=== PATIENT | female | born 1945 | race African-American/Black ===

== ENCOUNTER 2016-08-30 15:22 | Emergency (ER) | payer BC ==
[2016-08-30 15:40] VITALS: BMI 28.8
[2016-08-30] MEDS ORDERED: LEVOFLOXACIN 500 MG TABLET (FP) PO ONE (15:48)
--- NOTE | 2016-08-30 15:55 | PDOC ---
History of Present Illness - General History Source: Patient Exam Limitations: No Limitations <Jeison Nash - Last Filed: 08/30/16 15:57> - General History Source: Patient, Old Records Exam Limitations: No Limitations - History of Present Illness Initial Comments: 08/30/16 15:59 The patient is a 63-year-old woman with a significant past medical history of recurrent urinary tract infections (E.Coli and Klebsiella), mild intermittent asthma, hypertension and hypercholesterolemia who presents to the emergency department via walk in for further evaluation of dysuria for the past 2 days. She states that she started to experience burning sensations in her bladder and performed a home dipstick urinalysis which showed questionable leukocytes and negative nitrates. She states that initially her urine was not cloudy but today it had a cloudy appearance. She also started to experience right sided lower back pain, which prompt her to present to the emergency department. She reports that she has a history of UTIs and her last episode was approximately 2 and a half years ago. She was evaluated by an Infectious Disease Specialist at [facility] who advised her at the time to treat her with Keflex for 1 month. She denies fever, chills, diaphoresis, generalized weakness. She denies chest pain, shortness of breath, cough She denies abdominal pain, nausea, vomiting, diarrhea, hematuria, urinary frequency and urgency, flank pain, vaginal discharge/vaginal bleeding Allergies: Sulfa. Past Surgical History: None reported. Social History: No tobacco, EtOH and recreational drug use. Primary Care Physician: N/A <Marivel Luther - Last Filed: 08/31/16 07:54> - General Chief Complaint: Urinary Problem Stated Complaint: URINARY PROBLEM Time Seen by Provider: 08/30/16 15:29 Past History - Past Medical History Asthma: Yes HTN: Yes Other medical history: urinary track infections - Psycho/Social/Smoking Cessation Hx Anxiety: No Suicidal Ideation: No Smoking History: Never smoked Have you smoked in the past 12 months: No Information on smoking cessation initiated: No Hx Alcohol Use: No Drug/Substance Use Hx: No Substance Use Type: None <Jeison Nash - Last Filed: 08/30/16 15:57> <Marivel Luther - Last Filed: 08/31/16 07:54> - Past Medical History Allergies/Adverse Reactions: Allergies Allergy/AdvReac Type Severity Reaction Status Date / Time No Known Allergies Allergy Verified 08/30/16 15:38 Home Medications: Ambulatory Orders Levofloxacin [Levaquin -] 500 mg PO DAILY #10 tablet 10/15/13 Phenazopyridine HCl 200 mg PO TID #9 tablet 10/15/13 Levofloxacin [Levaquin -] 500 mg PO DAILY #7 tablet 08/30/16 Review of Systems - Review of Systems Able to Perform ROS?: Yes Comments:: 08/30/16 15:59 GENERAL/CONSTITUTIONAL: No fever or chills. No weakness. HEAD, EYES, EARS, NOSE AND THROAT: No change in vision. No ear pain or discharge. No sore throat. CARDIOVASCULAR: No chest pain or shortness of breath. RESPIRATORY: No cough, wheezing, or hemoptysis. GASTROINTESTINAL: No nausea, vomiting, diarrhea or constipation. GENITOURINARY: Yes: Dysuria. No: frequency, or change in urination. MUSCULOSKELETAL: Yes: Right Lower Back Pain. No joint or muscle swelling or pain. No neck pain. SKIN: No rash NEUROLOGIC: No headache, vertigo, loss of consciousness, or change in strength/ sensation. ENDOCRINE: No increased thirst. No abnormal weight change. HEMATOLOGIC/LYMPHATIC: No anemia, easy bleeding, or history of blood clots. ALLERGIC/IMMUNOLOGIC: No hives or skin allergy. <Marivel Luther - Last Filed: 08/31/16 07:54> *Physical Exam - Vital Signs Last Vital Signs Temp Pulse Resp BP Pulse Ox 70 18 143/90 97 08/30/16 15:25 08/30/16 15:25 08/30/16 15:25 08/30/16 15:25 <Jeison Nash - Last Filed: 08/30/16 15:57> - Vital Signs Last Vital Signs Temp Pulse Resp BP Pulse Ox 70 18 143/90 97 08/30/16 15:25 08/30/16 15:25 08/30/16 15:25 08/30/16 15:25 - Physical Exam Comments: 08/30/16 16:00 GENERAL: Awake, alert, and fully oriented, in no acute distress HEAD: No signs of trauma EYES: PERRLA, EOMI, sclera anicteric, conjunctiva clear ENT: Auricles normal inspection, hearing grossly normal, nares patent, oropharynx clear without exudates. Moist mucosa NECK: Normal ROM, supple, no lymphadenopathy, JVD, or masses LUNGS: Breath sounds equal, clear to auscultation bilaterally. No wheezes, and no crackles HEART: Regular rate and rhythm, normal S1 and S2, no murmurs, rubs or gallops ABDOMEN: Soft, nontender, normoactive bowel sounds. No guarding, no rebound. No masses EXTREMITIES: Normal range of motion, no edema. No clubbing or cyanosis. No cords, erythema, or tenderness NEUROLOGICAL: Cranial nerves II through XII grossly intact. Normal speech, normal gait <Marivel Luther - Last Filed: 08/31/16 07:54> Medical Decision Making - Medical Decision Making 08/30/16 15:48 A portion of this note was documented by scribe services under my direction. I have reviewed the details of the note, within reason, and agree with the documentation with the following case summary and management plan written by me. Patient treated in the ED. Nursing notes are reviewed and incorporated into the medical decision-making. Vital signs reviewed. Vital Signs Temp Pulse Resp BP Pulse Ox 70 18 143/90 97 08/30/16 15:25 08/30/16 15:25 08/30/16 15:25 08/30/16 15:25 71-year-old female with history of asthma, recurrent urinary tract infections, reportedly history of Escherichia coli and Klebsiella, currently working surgical nurse at [employer], presents with dysuria and cloudy urine since yesterday. Reports lower back discomfort but no abdominal pain. Denies fevers or chills. Denies flank pain. Patient has a dyspneic at home which is positive for leuk esterase. Primary neurology was checked. However, given her history of resistance, Levaquin will be ordered. The patient will call back in the next several days for culture results. Patient is given warning a potential tendinitis effect of for quinolones. Patient verbalized understanding and she will stop the medicine if she starts to develop tendinitis. I discussed the physical exam findings, ancillary test results and final diagnoses with the patient. I answered all of the patient's questions. The patient was satisfied with the care received and felt comfortable with the discharge plan and treatment plan. The patient will call their primary care physician within 24 hours to arrange follow-up and will return to the Emergency Department with any new, persistant or worsening symptoms. <Jeison Nash - Last Filed: 08/30/16 15:57> *DC/Admit/Observation/Transfer - Discharge Dispostion Admit: No <Jeison Nash - Last Filed: 08/30/16 15:57> <LutherMarivel - Last Filed: 08/31/16 07:54> Diagnosis at time of Disposition: UTI (lower urinary tract infection) - Discharge Dispostion Disposition: HOME Condition at time of disposition: Stable - Prescriptions Prescriptions: Levofloxacin [Levaquin -] 500 mg PO DAILY #7 tablet - Referrals Referrals: Justino Hurst MD [Primary Care Provider] - - Patient Instructions Printed Discharge Instructions: DI for Urinary Tract Infection (UTI) Additional Instructions: Take 500 mg levaquin daily for the next 7 days. Please call [phone] option 1 in the next day or two for the urine culture results. If you develop tendinitis, please stop taking the levaquin and return to the ER for antibiotic change.
[2016-08-30] MEDS ORDERED: LEVOFLOXACIN 500 MG TABLET (FP) ONE (16:15)
[2016-08-30 16:23] VITALS: BP 145/80; PULSE 66
[2016-08-30 16:31] LABS: URINE APPEARANCE CLOUDY; URINE BILIRUBIN NEGATIVE (NEGATIVE); URINE COLOR LTYELLOW; URINE GLUCOSE (UA) NEGATIVE (NEGATIVE); URINE KETONE NEGATIVE (NEGATIVE); URINE NITRITE NEGATIVE (NEGATIVE); URINE PROTEIN NEGATIVE (NEGATIVE); URINE UROBILINOGEN NEGATIVE E.U./dl (0.2-1.0)
[2016-08-30 16:35] LABS: URINE BLOOD 1+ (NEGATIVE); URINE LEUK ESTERASE 3+ (NEGATIVE)
[2016-08-30 16:36] LABS: URINE HYALINE CAST 2 /lpf; URINE RBC 15 /hpf (0-3); URINE WBC 699 /hpf (3-5)
== END 2016-08-30 16:26 | disposition home or self-care (01) ==
LOC: JER 15:22
DX: N39.0 Urinary tract infection, site not specified (principal); Z87.440 Personal history of urinary (tract) infections; J45.20 Mild intermittent asthma, uncomplicated; I10 Essential (primary) hypertension; E78.00 Pure hypercholesterolemia, unspecified; Z88.2 Allergy status to sulfonamides
CPT/HCPCS: 81003; 81015; 87086; 87186; 99282-25